=== PATIENT | female | born 1995 | race Two or more races ===

== ENCOUNTER → 2018-07-09 17:51 | Outpatient (CLI) | payer SELFPAY ==
[2018-07-13 11:53] LABS: HPV Reflexed? NOT INDICATED
== END ==
PROVIDERS: Referring Provider Obstetrics & Gynecology; Visit Provider Obstetrics & Gynecology
DX: Z12.4 Encounter for screening for malignant neoplasm of cervix (principal)
CPT/HCPCS: 87624; 88175; G0145

== ENCOUNTER → 2018-07-17 07:58 | Outpatient (CLI) | payer SELFPAY ==
[2018-07-16 08:12] VITALS: BMI 30.1
--- NOTE | 2018-07-17 08:04 | US_ITS ---
STUDY: ULTRASOUND BREAST - RIGHT REASON FOR EXAM: Female, 22 years old. Palpable lump in the right breast. TECHNIQUE: Axial and longitudinal images of the RIGHT breast were performed with a high resolution ultrasound transducer. COMPARISON: None. FINDINGS: RIGHT Breast: There is a 2.8 cm x 2.7 cm x 1.7 cm well-defined hypoechoic solid nodule at the 1:00 position breast at 1 cm from nipple. Vascularity is seen within. This most likely represents a fibroadenoma. A biopsy is recommended. IMPRESSION: The palpable and mildly corresponds to 22.8 cm x 2.7 cm 1.7 cm well-defined hypoechoic solid nodule. A biopsy is recommended. ASSESSMENT CATEGORY: BIRADS Category 4: Suspicious - Biopsy Should Be Considered. A letter regarding these results will be sent to the patient by the facility within 30 days. Electronically Signed: Kevin Ferrer, at 8:54 EDT , Service support , STUDY: ULTRASOUND BREAST - LEFT REASON FOR EXAM: Female, 22 years old. Palpable lump left breast. TECHNIQUE: Axial and longitudinal images of the LEFT breast were performed with a high resolution ultrasound transducer. COMPARISON: None. FINDINGS: LEFT Breast: There is a 1.2 cm x 1.4 cm x 0.7 cm well-defined hypoechoic nodule in the deep portion of the breast at the 1:00 position. This has characteristics of a cyst. US/Breast Complete Bilateral IMPRESSION: Findings suggestive by 1.2 cm x 1.4 cm x 0.7 cm cyst at the 1:00 position of the breast at 2 cm from the nipple. ASSESSMENT CATEGORY: BIRADS Category 2: Benign. A letter regarding these results will be sent to the patient by the facility within 30 days. Electronically Signed: Kevin Ferrer, at 8:55 EDT , Service support ,
== END ==
PROVIDERS: Family Provider Family Medicine; Visit Provider Surgery
DX: N63.10 Unspecified lump in the right breast, unspecified quadrant (principal); N63.20 Unspecified lump in the left breast, unspecified quadrant
CPT/HCPCS: 76641

== ENCOUNTER → 2018-11-26 | Outpatient (CLI) | payer SELFPAY ==
[2018-07-19 09:07] VITALS: BMI 30.1
[2018-11-26 20:45] LABS: Chlamydia Trachomatis by PCR Negative (Negative); Neisserai gonorrhoeae by PCR Negative (Negative); Probe Check PASS; Sample Adequacy Control PASS; Specimen Processing Control PASS
== END | disposition home or self-care (01) ==
LOC: LABSPEC 16:17
PROVIDERS: Visit Provider Obstetrics & Gynecology
DX: Z11.3 Encounter for screening for infections with a predominantly sexual mode of transmission (principal)
CPT/HCPCS: 87491; 87591